=== PATIENT | female | born 1975 | race Caucasian/White ===

== ENCOUNTER 2018-06-13 01:14 | Emergency (ER) | payer BC ==
--- NOTE | 2018-06-13 01:40 | ER Document Report ---
ED GI/ - General Chief Complaint: Vaginal Bleeding Stated Complaint: VAGINAL BLEEDING Time Seen by Provider: 06/13/18 01:28 Notes: Patient is a 42-year-old female that comes to the emergency department for chief complaint of heavy vaginal bleeding for the past 10 days, she states she also bled almost the entire month last month, this is abnormal for her. She denies any pain, she states she has intermittently felt lightheaded, she denies passing out. She is not on any contraceptive. She has had multiple pregnancies. Only other past medical history reported are tension headaches and migraines. TRAVEL OUTSIDE OF THE [place] IN LAST 30 DAYS: No - Related Data Allergies/Adverse Reactions: nitrofurantoin [From Macrobid] Allergy (Verified 06/13/18 02:16) nitrofurantoin macrocrystalline [From Macrobid] Allergy (Verified 06/13/18 02:16 ) Past Medical History - General Information source: Patient - Social History Smoking Status: Current Every Day Smoker Smoking Education Provided: Yes - <3 min Frequency of alcohol use: None Drug Abuse: None Lives with: Family Family History: Reviewed & Not Pertinent Neurological Medical History: Reports: Hx Migraine Past Surgical History: Reports: Hx Breast Surgery - breast augmentation, Hx Oral Surgery, Hx Tonsillectomy - Immunizations Hx Diphtheria, Pertussis, Tetanus Vaccination: Yes - 2011 Review of Systems - Review of Systems Constitutional: No symptoms reported EENT: No symptoms reported Cardiovascular: See HPI Respiratory: No symptoms reported Gastrointestinal: No symptoms reported Genitourinary: No symptoms reported Female Genitourinary: See HPI Musculoskeletal: No symptoms reported Skin: No symptoms reported Hematologic/Lymphatic: No symptoms reported Neurological/Psychological: No symptoms reported Physical Exam - Vital signs Vitals: Temp Pulse Resp BP Pulse Ox 98.3 F 74 14 135/86 H 100 06/13/18 01:16 06/13/18 01:16 06/13/18 01:16 06/13/18 01:16 06/13/18 01:16 - Notes Notes: GENERAL: Alert, interacts well. No acute distress. Chronically cachectic appearing. HEAD: Normocephalic, atraumatic. EYES: Pupils equal, round, and reactive to light. Extraocular movements intact. ENT: Oral mucosa moist, tongue midline. Oropharynx unremarkable. Airway patent. Nares patent, no nasal septal hematoma, TM's intact. NECK: Full range of motion. Supple. Trachea midline. LUNGS: Clear to auscultation bilaterally, no wheezes, rales, or rhonchi. No respiratory distress. HEART: Regular rate and rhythm. No murmur ABDOMEN: Soft, non-tender. Non-distended. Bowel sounds present in all 4 quadrants. GENITOURINARY: Moderate amount of vaginal bleeding, no heavy bleeding, no discharge, no cervical motion tenderness, no concerning abnormality otherwise. Exam performed with Erma ECHEVARRIA at bedside. EXTREMITIES: Moves all 4 extremities spontaneously. No edema, normal radial and dorsalis pedis pulses bilaterally. No cyanosis. BACK: no cervical, thoracic, lumbar midline tenderness. No saddle anesthesia, normal distal neurovascular exam. NEUROLOGICAL: Alert and oriented x3. Normal speech. [cranial nerves II through XII grossly intact]. PSYCH: Normal affect, normal mood. SKIN: Pale, dry, normal turgor. No rashes or lesions noted. Course - Re-evaluation Re-evalutation: Patient's vital signs are unremarkable. She is slightly pale and chronically cachectic appearing but she is not in distress. She is able to stand without dizziness and ambulate without difficulty. She does have vaginal bleeding on evaluation, moderate. Hemoglobin is not concerning, patient probably had previously elevated hemoglobin with smoking history. Ultrasound with no acute findings. No concerning findings noted otherwise. I discussed various options with patient. Patient does have follow-up already established with [facility]. After discussion decision was made to give patient TXA dose to help with her persistent vaginal bleeding. Dose adjusted because of her small size. Discussed with Dr. Barbosa. Discussed follow-up and return precautions in detail with patient. Patient state satisfaction and agreement. - Vital Signs Vital signs: Temp Pulse Resp BP Pulse Ox 98.4 F 62 17 113/82 97 06/13/18 03:49 06/13/18 03:49 06/13/18 03:49 06/13/18 04:40 06/13/18 03:49 - Laboratory Result Diagrams: 06/13/18 01:49 06/13/18 01:49 Laboratory results interpreted by me: 06/13/18 06/13/18 01:49 01:49 MCV 100 H MCH 33.9 H Plt Count 136 L Seg Neutrophils % 41.5 L Lymphocytes % 47.4 H Total Protein 6.2 L Discharge - Discharge Clinical Impression: Menorrhagia with irregular cycle Condition: Stable Disposition: HOME, SELF-CARE Additional Instructions: Your laboratory workup and ultrasound are reassuring, however your dysfunctional uterine bleeding needs further evaluation and management. Please follow-up with your appointment with [facility] S[facility] MANAGER for additional evaluation and management including possible endometrial biopsy. You are being treated with TXA tonight to help with the bleeding. Stop smoking. Return if you worsen including abdominal pain, passing out, or any other concerning or worsening symptoms. Forms: Smoking Cessation Education Referrals: [facility] [Provider Group] - Follow up as needed
[2018-06-13 02:07] LABS: ABSOLUTE EOSINOPHILS # (AUTO) 0.1 10^3/uL (0.0-0.6); ABSOLUTE MONOCYTES (AUTO) 0.5 10^3/uL (0.1-1.4); HEMOGLOBIN 13.1 g/dL (12.0-15.5); MEAN CORPUSCULAR HGB CONC 34.1 g/dL (32.0-36.0); PLATELET COUNT 136 10^3/uL (150-450); TOTAL CELLS COUNTED % (AUTO) 100 %
[2018-06-13 02:14] LABS: ABSOLUTE LYMPHOCYTES (AUTO) 2.5 10^3/uL (0.5-4.7); ABSOLUTE NEUT (AUTO) 2.2 10^3/uL (1.7-8.2); BASOPHILS % (AUTO) 0.4 % (0-2); EOSINOPHILS % (AUTO) 1.5 % (0-6); HEMATOCRIT 38.3 % (36.0-47.0); LYMPHOCYTES % (AUTO) 47.4 % (13-45); MEAN CORPUSCULAR HEMOGLOBIN 33.9 pg (27.0-33.4); MEAN CORPUSCULAR VOLUME 100 fl (80-97); MONOCYTES % (AUTO) 9.2 % (3-13); RED BLOOD COUNT 3.85 10^6/uL (3.72-5.28); RED CELL DISTRIBUTION WIDTH 13.5 % (11.5-14.0); SEGMENTED NEUTROPHILS % (AUTO) 41.5 % (42-78); WHITE BLOOD COUNT 5.2 10^3/uL (4.0-10.5)
[2018-06-13 02:17] LABS: ALANINE AMINOTRANSFERASE 24 U/L (9-52); ALBUMIN 3.9 g/dL (3.5-5.0); ALKALINE PHOSPHATASE 47 U/L (38-126); ANION GAP 7 (5-19); ASPARTATE AMINO TRANSFERASE 16 U/L (14-36); BILIRUBIN,DIRECT 0.2 mg/dL (0.0-0.4); BILIRUBIN,TOTAL 0.2 mg/dL (0.2-1.3); BLOOD UREA NITROGEN 7 mg/dL (7-20); CALCIUM 9.3 mg/dL (8.4-10.2); CARBON DIOXIDE 26 mmol/L (22-30); CHLORIDE 107 mmol/L (98-107); GLUCOSE 98 mg/dL (75-110); POTASSIUM 3.9 mmol/L (3.6-5.0); SODIUM 140.4 mmol/L (137-145); TOTAL PROTEIN 6.2 g/dL (6.3-8.2)
[2018-06-13 02:32] LABS: RBCS (WET MOUNT) 4+ RBCS SEEN; T.VAGINALIS (WET MOUNT) NO TRICHOMONAS SEEN; WBCS (WET MOUNT) 1+ WBCS SEEN; YEAST (WET MOUNT) NO YEAST SEEN
--- NOTE | 2018-06-13 03:20 | RADIOLOGY REPORT (SQ) ---
EXAM DESCRIPTION: US TRANSVAGINAL COMPLETED DATE/TME: 06/13/2018 01:38 CLINICAL HISTORY: 42 years, Female, persistent heavy vaginal bleeding COMPARISON: None. TECHNIQUE: Transverse and longitudinal transvaginal sonographic images of the pelvis LIMITATIONS: None. FINDINGS: The uterus measures 6.5 x 4.7 x 4.9 cm. The myometrium is homogenous. The endometrium measures 8 mm in thickness. Trace of fluid in the endocervical canal. The right ovary measures 3.5 x 2.3 x 3.0 cm. The left ovary is not well seen, likely due to its position in the pelvis. Normal flow to the right ovary. No adnexal cyst or mass. No free fluid. IMPRESSION: Small amount of fluid within the endocervical canal. Correlate with menstrual history. Nonvisualization of the left ovary, likely due to its position in the pelvis copyright 2010 [employer]- All Rights Reserved
[2018-06-13] MEDS ORDERED: TRANEXAMIC ACID INJ/PF 1,000 MG/10 ML SDV IV ONE (03:35)
[2018-06-13 03:58] LABS: CHLAM PCR NOT DETECTED (NOT DETECT); GON PCR NOT DETECTED (NOT DETECT)
[2018-06-13 04:43] VITALS: BP 113/82
== END 2018-06-13 04:55 | disposition home or self-care (01) ==
LOC: ER 01:14
DX: N92.1 Excessive and frequent menstruation with irregular cycle (principal); R42 Dizziness and giddiness; R23.1 Pallor; F17.200 Nicotine dependence, unspecified, uncomplicated; Z88.1 Allergy status to other antibiotic agents
CPT/HCPCS: 99284; 96374; 86900; 86901; 36415; 87210; 86850; 84703; 85025; 80053; 87491; 87591; 76830; 93976; J3490

== ENCOUNTER → 2018-07-08 | Outpatient (CLI) | payer BC ==
--- NOTE | 2018-07-08 12:12 | WOMENS IMAGING REPORT ---
EXAM DESCRIPTION: BILAT SCREENING MAMMO W/CAD COMPLETED DATE/TIME: 07/08/2018 11:52 am REASON FOR STUDY: ROUTINE BILATERAL SCREENING;Z12.31 Z12.31 ENCNTR SCREEN MAMMOGRAM FOR MALIGNANT N EOPLASM OF DENA COMPARISON: 2014 TECHNIQUE: Standard craniocaudal and mediolateral oblique views of each breast recorded using Cell[employer] l acquisition. Additional "push-back" craniocaudal and mediolateral oblique images could not be acqu ired. LIMITATIONS: See above. FINDINGS: IMPLANTS: Bilateral subglandular implants. Findings present which are benign by mammographic criteria. No suspicious masses, calcifications or architectural distortion. Read with the assistance of CAD. .[facility] - R2 Cenova Version 1.3 .[facility] Imaging - R2 Cenova Version 1.3 .[facility] Imaging - R2 Cenova Version 2.4 .[facility] - R2 Cenova Version 2.4 .[facility] - R2 Employee Relations Specialist Version 9.2 Benign mammographic findings may include one or more of the following: Smooth masses, popcorn/rim/co arse calcifications, asymmetries, post-procedure changes, and lesions with long-standing stability. IMPRESSION: BENIGN MAMMOGRAPHIC FINDINGS. BIRADS 2 BREAST DENSITY: c. The breasts are heterogeneously dense, which may obscure small masses. BIRAD: 2 BENIGN FINDING(S) RECOMMENDATION: ROUTINE SCREENING COMMENT: The patient has been notified of the results by letter per SA requirements. Additional no tification policies are in place for contacting patient with suspicious or incomplete findings. Quality ID #[id number]: The [employer] recommends an annual screening mammogram for women aged 40 years or over. This facility utilizes a reminder system to ensure that all patients receive reminder letters, and/or direct phone calls for appointments. This includes reminders for routine scr eening mammograms, diagnostic mammograms, or other Breast Imaging Interventions when appropriate. Th is patient will be placed in the appropriate reminder system. The [employer] (ACR) has developed recommendations for screening MRI of the breast s in certain patient populations, to be used in conjunction with mammography. Breast MRI surveillanc e may be appropriate for women with more than 20% lifetime risk of developing breast cancer as deter mined by genetic testing, significant family history of the disease, or history of mantle radiation f or Hodgkins Disease. ACR Practice Guidelines 2008. TECHNICAL DOCUMENTATION: FINDING NUMBER: (1) ASSESSMENT: (1) JOB ID: [id number] [employer]- All Rights Reserved Reading location - IP/workstation name: [email or web address]
== END ==
LOC: WI 11:07
PROVIDERS: ATTEND Obstetrics & Gynecology
DX: Z12.31 Encounter for screening mammogram for malignant neoplasm of breast (principal); Z98.82 Breast implant status
CPT/HCPCS: 77067

== ENCOUNTER 2019-10-07 18:50 | Emergency (ER) | payer BC ==
[2019-10-07] MEDS ORDERED: KETOROLAC TROMETHAMINE INJ/PF 30 MG/1 ML SDV IM ONE (19:49)
[2019-10-07] MEDS ORDERED: DEXAMETHASONE SOD PHOS INJ 10 MG/1 ML VIAL IM ONE (19:50)
[2019-10-07] MEDS ORDERED: CYCLOBENZAPRINE HCL 10 MG TABLET PO ONE (19:50)
--- NOTE | 2019-10-07 19:56 | ER Document Report ---
ED Neck/Back Problem - General Chief Complaint: Neck Pain < 24hrs old Stated Complaint: NECK PAIN Time Seen by Provider: 10/07/19 19:36 Primary Care Provider: [facility] [Provider Group] - Follow up as needed [facility] [Provider Group] - Follow up as needed ALINA IBARRA MD [Primary Care Provider] - Follow up as needed Mode of Arrival: Ambulatory Information source: Patient Notes: 43-year-old female presented to ED for complaint of sharp pain to the back of the neck across the right shoulder and down the right arm with numbness to the fingers. She states she did not fall but yesterday she lifted a 40 pound bag of rock salt at [employer] put into the car and then took another car pulled into the car. She states she did not have any pain at that time but at 2:00 this afternoon when she lifted her hand above her shoulders to put her Decadron she had excruciating pain down her arm with numbness to her fingers. She states she does have a history of some neck problem and neck pain in the past. She is on medication for chronic back pain but this is worse than her normal. She is alert oriented respirations regular nonlabored speaking in full sentences. She states she does take hydrocodone and Fioricet for her chronic pain. TRAVEL OUTSIDE OF THE [place] IN LAST 30 DAYS: No - HPI Patient complains to provider of: Pain, Neck - Across right shoulder down right arm Onset: Other - See HPI Onset: Gradual Timing: Still present Quality of pain: Sharp Severity: Moderate Pain Level: 3 Context: Lifting Recent injury: Possibly Associated symptoms: Other - HPI Exacerbated by: Movement of neck - Or movement of right arm Relieved by: Nothing Similar symptoms previously: Yes Recently seen / treated by doctor: No - Related Data Allergies/Adverse Reactions: nitrofurantoin [From Macrobid] Allergy (Verified 06/13/18 02:16) nitrofurantoin macrocrystalline [From Macrobid] Allergy (Verified 06/13/18 02:16) Home Medications: Hydrocodone. Fuorioset Past Medical History - General Information source: Patient - Social History Smoking Status: Current Every Day Smoker Cigarette use (# per day): Yes - Pack per day Smoking Education Provided: Yes - 4 minutes Frequency of alcohol use: None Drug Abuse: None Lives with: Family Family History: Reviewed & Not Pertinent Patient has suicidal ideation: No Patient has homicidal ideation: No - Past Medical History Cardiac Medical History: Reports: None Pulmonary Medical History: Reports: None EENT Medical History: Reports: None Neurological Medical History: Reports: Hx Migraine Endocrine Medical History: Reports: None Renal/ Medical History: Reports: None. Denies: Hx Peritoneal Dialysis Malignancy Medical History: Reports: None GI Medical History: Reports: None Musculoskeletal Medical History: Reports Hx Musculoskeletal Deformity, Reports Hx Musculoskeletal Trauma Skin Medical History: Reports None Psychiatric Medical History: Reports: None Traumatic Medical History: Reports: None Infectious Medical History: Reports: None Past Surgical History: Reports: Hx Breast Surgery - breast augmentation, Hx Oral Surgery, Hx Tonsillectomy - Immunizations Hx Diphtheria, Pertussis, Tetanus Vaccination: Yes - 2011 Review of Systems - Review of Systems Constitutional: No symptoms reported EENT: No symptoms reported Cardiovascular: No symptoms reported Respiratory: No symptoms reported Gastrointestinal: No symptoms reported Genitourinary: No symptoms reported Female Genitourinary: No symptoms reported Musculoskeletal: Other - Pain in the back of her neck across the right shoulder down the right arm Skin: No symptoms reported Hematologic/Lymphatic: No symptoms reported Neurological/Psychological: No symptoms reported -: Yes All other systems reviewed and negative Physical Exam - Vital signs Vitals: Temp Pulse Resp BP Pulse Ox 98.2 F 83 20 129/93 H 97 10/07/19 18:55 10/07/19 18:55 10/07/19 18:55 10/07/19 18:55 10/07/19 18:55 Interpretation: Normal - General General appearance: Appears well, Alert - HEENT Head: Normocephalic, Atraumatic Eyes: Normal Pupils: PERRL - Respiratory Respiratory status: No respiratory distress Chest status: Nontender Breath sounds: Normal Chest palpation: Normal - Cardiovascular Rhythm: Regular Heart sounds: Normal auscultation Murmur: No - Abdominal Inspection: Normal Distension: No distension Bowel sounds: Normal Tenderness: Nontender Organomegaly: No organomegaly - Back Back: Normal, Nontender. No: Vertebra tenderness Notes: Pain with movement of the neck palpation to the right shoulder and range of motion to the right arm or shoulder - Extremities General upper extremity: Normal inspection, Nontender, Normal color, Normal ROM, Normal temperature General lower extremity: Normal inspection, Nontender, Normal color, Normal ROM, Normal temperature, Normal weight bearing. No: Lilliam's sign Shoulder: Other - Pain with range of motion but has full range of motion - Neurological Neuro grossly intact: Yes Cognition: Normal Orientation: AAOx4 More Coma Scale Eye Opening: Spontaneous More Coma Scale Verbal: Oriented More Coma Scale Motor: Obeys Commands [place] Coma Scale Total: 15 Speech: Normal Motor strength normal: LUE, RUE, LLE, RLE Sensory: Normal - Psychological Associated symptoms: Normal affect, Normal mood - Skin Skin Temperature: Warm Skin Moisture: Dry Skin Color: Normal Course - Re-evaluation Re-evalutation: 10/07/19 19:56 We will get x-ray of the neck treat with Toradol Decadron and Flexeril reassess after I get the results of the x-ray. - Vital Signs Vital signs: Temp Pulse Resp BP Pulse Ox 98.1 F 80 20 125/84 99 10/07/19 22:11 10/07/19 22:11 10/07/19 22:11 10/07/19 22:11 10/07/19 22:11 - Diagnostic Test Radiology reviewed: Image reviewed, Reports reviewed Discharge - Discharge Clinical Impression: Pain of right shoulder joint on movement, Pain of right upper extremity, Pain in the neck Condition: Stable Disposition: HOME, SELF-CARE Additional Instructions: You were seen today for pain to the right shoulder arm and neck after you lifted a bag of rock salt yesterday and then lifted your arm above your head today. You have not fallen and the x-rays are negative for any fractures or acute abnormalities. Shoulder Injury You have injured your shoulder. This usually results from stretching or tearing of the tendons during trauma. Time and protection are required in order to heal properly. Many injuries are quite disabling, and should be taken seriously. Initial treatment includes cold packs and a sling to rest the shoulder. The physician has assessed the seriousness of your injury, and has outlined a treatment plan. Understand that this treatment may change, depending on how you progress. If a re-examination was recommended, it is important that you follow up as instructed. Some shoulder injuries (such as partial tear of the rotator cuff) are only suspected after you've failed to improve. Call us if there's severe pain, numbness, or loss of function. Exercise Program for the Shoulder Since the shoulder moves in so many directions, the joint attachment is weak. Muscles provide most of the stability to the shoulder. You must exercise your shoulder to prevent painful instability or stiffening. PASSIVE - These may be begun within a few days of the injury. While standing, lean forward, allowing the arm to hang down towards the floor. Move the arm in small circles while slowly twisting your chest towards and away from the hanging arm. Do this for one minute. ACTIVE - These may be performed when the doctor gives permission. Begin with the arms at the sides. Raise the arms forward (shoulder's width apart) until they reach shoulder level. Then slowly swing both arms back until they are aiming straight out away from each other. Then bring them forward again, and finally, lower them to your sides. Repeat 20 to 30 times. As you improve, put weights in your hands for the exercise. Start with one pound, and work up to 10 pounds. Never use more than is comfortable. Athletes may work up to 30 pounds. Oral Narcotic Medication You have been given a [place] for pain control. This medication is a narcotic. It's best taken with food, as nausea can result if taken on an empty stomach. Don't operate machinery or drive within six hours of taking this medication. Do not combine this medicine with alcohol, or with any medication which can cause sedation (such as cold tablets or sleeping pills) unless you get permission from the physician. Narcotics tend to cause constipation. If possible, drink plenty of fluids and eat a diet high in fiber and fruits. Toradol Injection You have been given an injection of ketorolac tromethamine (Toradol). This is an excellent, safe drug for pain control. It also has potent antiinfla mmatory action. You should have significant pain relief within about one hour. Toradol is not addicting and is non-sedating. It does not interfere with driving or work. Call or return if you develop itching, hives, shortness of breath, or rash. STEROID MEDICATION: You have been given an injection of medicine of the cortisone/steroid class. This medication is used to control inflammation or allergy. It is often continued as a pill for a short period of time, until the acute process subsides. There are usually no side effects from short-term use of cortisone-like medications. Some persons feel an increased sense of well-being and are not sleepy at bedtime. Long-term use of cortisone medications is best avoided, unless required for a severe condition. If your condition does not remit, or relapses after the course of corticosteroid medication, you should consult your physician. Muscle Relaxers cannot take your tizanidine while taking the Flexeril Muscle relaxing medications are usually prescribed for acute muscle spasm or injury to the neck and back. They are often combined with antiinflammatory pain medication for increased relief. You may stop the muscle relaxer when the pain and stiffness have improved. Start the medication again if spasms recur. Muscle relaxers may cause drowsiness, especially with the first dose. Do not operate machinery or drive while under the effects of the medication. Most muscle relaxers last up to 24 hours. Do not combine the medication with alcohol. FOLLOW-UP CARE: If you have been referred to a physician for follow-up care, call the physicians office for an appointment as you were instructed or within the next two days. If you experience worsening or a significant change in your symptoms, notify the physician immediately or return to the Emergency Department at any time for re-evaluation. Prescriptions: Cyclobenzaprine HCl [Flexeril 10 mg Tablet] 10 mg PO TIDP PRN #15 tab PRN Reason: Forms: Elevated Blood Pressure, Smoking Cessation Education Referrals: ALINA IBARRA MD [Primary Care Provider] - [facility] [[facility]] - Follow up as needed [facility] [Provider Group] - Follow up as needed
--- NOTE | 2019-10-07 20:24 | RADIOLOGY REPORT (SQ) ---
INDICATION: pain neck across shoulder down right arm. TECHNIQUE: 5 view(s) of the cervical spine. Both obliques COMPARISON: None FINDINGS: No evidence of acute displaced fracture. Alignment is anatomic. The facets and uncovertebral joints are within normal limits for age. Surrounding soft tissues are unremarkable. Mild straightening of the normal cervical lordosis perhaps due to positioning or spasm. Neuroforamen appear patent, bilaterally IMPRESSION: No evidence of acute displaced fracture or dislocation of the cervical spine.
[2019-10-07] MEDS ORDERED: HYDROCODONE/ACETAMINOPHEN 5-325 MG TABLET PO ONE (21:59)
[2019-10-07 22:12] VITALS: BP 125/84
== END 2019-10-07 22:10 | disposition home or self-care (01) ==
LOC: ER 18:50
DX: M54.2 Cervicalgia (principal); M25.511 Pain in right shoulder; G89.29 Other chronic pain; F17.210 Nicotine dependence, cigarettes, uncomplicated
CPT/HCPCS: 99406; 99283; 96372; 72050; J1885; J1100

== ENCOUNTER → 2020-03-22 | Outpatient (CLI) | payer BC ==
--- NOTE | 2020-03-22 15:39 | WOMENS IMAGING REPORT ---
EXAM DESCRIPTION: BILAT SCREENING MAMMO W/CAD IMAGES COMPLETED DATE/TIME: 03/22/2020 2:45 pm REASON FOR STUDY: ROUTINE SCREENING MAMMOGRAM Z12.31 Z12.31 ENCNTR SCREEN MAMMOGRAM FOR MALIGNANT N EOPLASM OF DENA COMPARISON: 2014, 2018 EXAM PARAMETERS: Standard craniocaudal and mediolateral oblique views of each breast recorded using digital acquisition. Additional "push-back" craniocaudal and mediolateral oblique images acquired. Read with the assistance of CAD. .[facility] - R2 Belt Sander Version 9.2 LIMITATIONS: None. FINDINGS: IMPLANTS: Bilateral subglandular implants. Findings present which are benign by mammographic criteria. No suspicious masses, calcifications or architectural distortion. Benign mammographic findings may include one or more of the following: Smooth masses, popcorn/rim/co arse calcifications, asymmetries, post-procedure changes, and lesions with long-standing stability. IMPRESSION: BENIGN MAMMOGRAPHIC FINDINGS. BIRADS 2 BREAST DENSITY: c. The breasts are heterogeneously dense, which may obscure small masses. BIRAD: ASSESSMENT: 2 BENIGN FINDING(S) RECOMMENDATION: ROUTINE SCREENING COMMENT: The patient has been notified of the results by letter per SA requirements. Additional no tification policies are in place for contacting patient with suspicious or incomplete findings. Quality ID #225: The [employer] recommends an annual screening mammogram for women aged 40 years or over. This facility utilizes a reminder system to ensure that all patients receive reminder letters, and/or direct phone calls for appointments. This includes reminders for routine scr eening mammograms, diagnostic mammograms, or other Breast Imaging Interventions when appropriate. Th is patient will be placed in the appropriate reminder system. TECHNICAL DOCUMENTATION: FINDING NUMBER: (1) ASSESSMENT: (1) JOB ID: [id number] 2010 [employer]- All Rights Reserved Reading location - IP/workstation name: [email or web address]
== END ==
LOC: WI 14:31
PROVIDERS: ATTEND Midwife
DX: Z12.31 Encounter for screening mammogram for malignant neoplasm of breast (principal); Z98.82 Breast implant status
CPT/HCPCS: 77067

== ENCOUNTER → 2020-04-17 | Outpatient (CLI) | payer BC ==
[2020-04-19 07:08] LABS: CANCER ANTIGEN (CA) 125 8.6 U/mL (0.0-38.1)
[2020-04-20 07:11] LABS: INHIBIN A ULTRASENSITIVE 167.5 pg/mL (.); INHIBIN B 17.5 pg/mL (.)
== END ==
LOC: OD 16:38
PROVIDERS: ATTEND Student in an Organized Health Care Education/Training Program
DX: D39.10 Neoplasm of uncertain behavior of unspecified ovary (principal); N83.201 Unspecified ovarian cyst, right side
CPT/HCPCS: 36415; 83520; 86301; 86304; 86336